=== PATIENT | female | born 1995 | race Caucasian/White ===

== ENCOUNTER 2022-03-17 21:00 | Emergency (ER) | payer SELFPAY ==
--- NOTE | 2022-03-17 21:45 | NUR ---
PATIENT WAS JUST CALLED AT THIS TIME FOR RE CHECK OF VITAL SIGNS DUE TO NO BEDS AVAILABLE, SHORT STAFF AND HOLDING 3 ICU NURSE. BUT PATIENT WAS NOT PRESENT IN THE WAITING ROOM OR OUTSIDE OF ER.
--- NOTE | 2022-03-17 22:05 | NUR ---
PATIENT WAS CALLED TO BE TRIAGED BUT WAS NOT PRESENT IN THE WAITING ROOM OR OUTSIDE OF ER.
--- NOTE | 2022-03-17 22:25 | NUR ---
PATIENT WAS CALLED TO BE TRIAGED BUT WAS NOT PRESENT. PATIENT WAS NOT TRIAGED OR SEEN BY [facility]MD.
== END 2022-03-17 22:26 | disposition left against medical advice (07) ==
LOC: ER 21:03
DX: Z53.21 Procedure and treatment not carried out due to patient leaving prior to being seen by health care provider (principal)